=== PATIENT | female | born 2000 | race Caucasian/White ===

== ENCOUNTER → 2024-05-22 14:45 | Outpatient (REF) | payer BC, SELFPAY | LOC: PNTC 14:45 | PROVIDERS: ATTENDING PHYSICIAN Advanced Practice Midwife | DX: Z36.0 Encounter for antenatal screening for chromosomal anomalies (principal); Z36.82 Encounter for antenatal screening for nuchal translucency | CPT/HCPCS: 76801; 76813 ==

== ENCOUNTER 2024-07-02 08:46 | Emergency (ER) | payer OTHER, SELFPAY ==
[2024-07-02 08:49] VITALS: BP 105/74
--- NOTE | 2024-07-02 09:12 | ED.GENMED ---
History of Present Illness
General
Chief Complaint: Problems
Time Seen by Provider: 07/02/24 09:02
History of Present Illness
History of Present Illness:
Patient presents to the emergency department with vaginal bleeding. She is currently 18 weeks . G1, P0. She is otherwise healthy. She notes a small amount of blood clots on the toilet paper this morning. She states this just happened 1
time. There has not been significant bleeding since. She endorses some mild lower abdominal cramping though she is unsure if this is just typical discomfort. Denies any vomiting. Denies any fevers. Denies any urinary symptoms.
Phy Exam
Physical Exam
Physical Exam:
GENERAL APPEARANCE: NAD, well developed/ well nourished
EYES lids/conjunctiva normal
EARS/NOSE/THROAT Mucous membranes moist, uvula midline without oral pharyngeal erythema, exudate or swelling
HEAD/NECK normocephalic atraumatic, neck is supple.
RESPIRATORY respiratory effort normal, speaks in full sentences, no accessory muscle use. Lungs clear to auscultation without rhonchi, wheezes, rales
CARDIAC Regular rate and rhythm, no edema.
ABDOMINAL gravid abdomen. Nontender uterus, no abdominal tenderness
MUSCLES/EXTREMITIES No abnormal range of motion, no swelling.
SKIN Warm, pink and dry. No rashes
NEUROLOGICAL Speech is clear and appropriate. Normal level of consciousness. 5/5 strength in all extremities.
PSYCH Normal mood and affect. Judgement/competence is appropriate
Course
Orders/Labs/Results
Orders:
Orders
07/02/24 09:10
US Limited Urgent
Reason For Exam: vaginal bleeding
07/02/24 09:45
Type+Screen Urgent
Complete Blood Count/With Diff Urgent
Comprehensive Metabolic Panel Urgent
HCG, Beta Quantitative [Beta HCG Quantitative] Urgent
Is this a screen?: No
Urinalysis Reflex To Culture Urgent
Date Specimen was Collected: 07/02/24
Time Specimen was Collected: 09:44
Urine Microscopic Reflex Cult Urgent
Urine Culture Urgent
JES Source: U
Specimen Description:
Date Specimen was Collected: 07/02/24
Time Specimen was Collected:
Abnormal Lab Results
07/02/24
09:45
MCH 31.8 H pg
(27.0-31.0)
Absolute Lymphs (auto) 1.1 L 10^3/uL
(1.2-3.4)
Lymphocytes % 17.4 L %
(20.5-51.1)
BUN 6 L mg/dl
(7-17)
Creatinine 0.5 L mg/dL
(0.6-1.0)
Total Protein 6.2 L g/dl
(6.3-8.2)
Leukocyte Esterase Rfl 2+ A
(Negative)
Urine WBC (Reflex) 16-20 A /HPF
(0-5)
Urine Bacteria (Reflex) Moderate A
(Negative)
Urine Glucose 1+ A
(Negative)
07/02/24 09:45
07/02/24 09:45
Vital Signs
Initial and Last Documented VS:
Initial Vital Signs
Temp Pulse Resp BP Pulse Ox
98.2 F 68 18 105/74 100
07/02/24 08:49 07/02/24 08:49 07/02/24 08:49 07/02/24 08:49 07/02/24 08:49
Last Documented Vital Signs
Temp Pulse Resp BP Pulse Ox
98.2 F 68 18 105/74 100
07/02/24 08:49 07/02/24 08:49 07/02/24 08:49 07/02/24 08:49 07/02/24 08:49
Information
Weeks gestation: Weeks: (18)
Location: Location: (uterus)
*Critical Care Note
Total Time (30-74mins, 75-104mins- exclusive of procedures): Not Applicable
ED Attending Note
ED Attending Note
ED Attending Note:
Patient with an episode of vaginal bleeding during secondary menstrual . She is hemodynamically stable. There is not continued hemorrhaging. Will check blood work and ultrasound of pelvis
Ultrasound showing normal . Patient has had no more bleeding while in the emergency department. She is feeling well and appears well. Will treat for asymptomatic bacteriuria. Patient is Rh+ and will not require RhoGAM. Counseled on
close follow-up with her dot compliance manager as an outpatient. Return precautions given
-
Portions of this chart may have been created with voice recognition software.� Occasional wrong word or��sound alike� substitutions may have occurred due to the inherent limitations of voice recognition software.
Discharge Plan
Departure
Patient Disposition: Home (Routine Discharge)
Date of Disposition: 07/02/24
Time of Disposition: 11:47
Patient with high blood pressure during this ER visit?: No
Discharge Problem:
Vaginal bleeding during , Asymptomatic bacteriuria during
Prescriptions:
New
nitrofurantoin monohyd/m-cryst [Macrobid] 100 mg capsule
100 mg PO BID Qty: 10 0RF
Referrals:
Karla Moss CRNP [Family Provider] -
Activity Restrictions/Additional Instructions:
Please follow-up with your dot compliance manager as soon as possible. We started you on an antibiotic for asymptomatic bacteriuria. Return to the emergency department with new or worsening bleeding, pelvic pain or cramping, or other new or concerning
symptoms
Interventions
Interventions:
*Risk Screen - Suicide Last Done: 07/02/24 08:49
*General Assessment Last Done: 07/02/24 08:49
*Neglect/Abuse Screening Last Done: 07/02/24 08:49
*ED- Fall Risk Assessment Last Done: 07/02/24 10:48
*ED COVID-19 Vaccine History Last Done: 07/02/24 10:48
ED-Female Genitourinary Assessment Last Done: 07/02/24 10:48
Discharge Date and Time
Print Language: GEORGIAN
[2024-07-02 09:44] VITALS: BMI 25.8
[2024-07-02 09:55] LABS: % Basophils 0.5 % (0-2); % Eosinophils 2.2 % (0-6); % Immature Granulocytes 0.5 % (0-0.5); % Lymphocytes 17.4 % (20.5-51.1); % Monocytes 5.5 % (1.7-9.3); % Neutrophils 73.9 % (42.2-75.2); Absolute Eosinophils 0.1 10^3/uL (0-0.7); Absolute Lymphocytes 1.1 10^3/uL (1.2-3.4); Absolute Monocytes 0.4 10^3/uL (0.1-0.6); Absolute Neutrophils 4.8 10^3/uL (1.4-6.5); Hemoglobin 13.6 g/dL (12.0-16.0); Mean Corp Hgb Conc. 34.9 g/dL (33.0-37.0); Mean Corpuscular Hgb 31.8 pg (27.0-31.0); Mean Corpuscular Volume 91.1 fL (81.0-99.0); Mean Platelet Volume 9.6 fL (7.4-10.4); Nucleated Red Blood Cells % 0 %; Platelet Count 258 10^3/uL (130-400); Red Blood Cell Count 4.28 10^6/uL (4.20-5.40); Red Cell Dist. Width 13.1 % (11.5-14.5); White Blood Cell Count 6.4 10^3/uL (4.8-10.8)
[2024-07-02 10:00] LABS: Urine Albumin Negative (Neg - Trace); Urine Bilirubin Negative (Negative); Urine Character Slightly Cloudy (Clear); Urine Color Yellow; Urine Glucose 1+ (Negative); Urine Ketone Negative (Negative); Urine Leukocyte 2+ (Negative); Urine Nitrite Negative (Negative); Urine Occult Blood Negative (Negative); Urine Urobilinogen Negative (Neg - 1+); Urine pH 6.5 (5.0-9.0)
[2024-07-02 10:04] LABS: ALT (SGPT) 27 U/L (0-35); AST (SGOT) 26 U/L (14-36); Albumin 3.8 g/dl (3.5-5.0); Alkaline Phosphatase 42 U/L (38-126); Blood Urea Nitrogen 6 mg/dl (7-17); Calcium 9.9 mg/dl (8.4-10.2); Carbon Dioxide 25 mmol/L (22-30); Chloride 107 mmol/L (98-107); Estimated Creatinine Clearance 123 ml/min; Glucose 75 mg/dl (70-99); Potassium 4.1 mmol/L (3.5-5.1); Sodium 139 mmol/L (135-145); Total Bilirubin 0.4 mg/dl (0.2-1.3); Total Protein 6.2 g/dl (6.3-8.2); eGFR > 60.00
[2024-07-02 10:13] LABS: Urine Squamous Cell >30 /LPF (Few)
[2024-07-02 10:14] LABS: Urine Bacteria Moderate (Negative); Urine White Cell 16-20 /HPF (0-5)
[2024-07-02 10:15] LABS: Urine Red Blood Cell None Seen /HPF (0-2)
[2024-07-02 12:12] VITALS: BP 112/69
== END 2024-07-02 12:14 | disposition home or self-care (01) ==
LOC: EMR 08:46
PROVIDERS: EMERGENCY PHYSICIAN Emergency Medicine; FAMILY PHYSICIAN Nurse Practitioner Family
DX: O20.9 Hemorrhage in early pregnancy, unspecified (principal); Z3A.18 18 weeks gestation of pregnancy; R82.71 Bacteriuria; Z88.1 Allergy status to other antibiotic agents
CPT/HCPCS: 99284; 76815; 80053; 81003; 81015; 84702; 85025; 86850; 86900; 86901; 87086

== ENCOUNTER → 2024-07-18 07:47 | Outpatient (REF) | payer OTHER, SELFPAY | LOC: PNTC 07:47 | PROVIDERS: ATTENDING PHYSICIAN Obstetrics & Gynecology | DX: Z34.82 Encounter for supervision of other normal pregnancy, second trimester (principal) | CPT/HCPCS: 76805; 76817 ==

== ENCOUNTER 2024-11-29 09:45 | Inpatient (IN) | payer OTHER, SELFPAY ==
[2024-11-29 10:10] VITALS: BP 124/92; BMI 28.9
[2024-11-29 10:54] LABS: Hematocrit 37.1 % (37.0-47.0); Hemoglobin 12.6 g/dL (12.0-16.0); Mean Corp Hgb Conc. 34.0 g/dL (33.0-37.0); Mean Corpuscular Volume 86.9 fL (81.0-99.0); Nucleated Red Blood Cells % 0 %; Platelet Count 257 10^3/uL (130-400); Red Cell Dist. Width 13.7 % (11.5-14.5)
[2024-11-29] MEDS: CLEOCIN 50 IV ×2 (11:00→19:01)
[2024-11-29] MEDS: PITOCIN 30 UNITS/NSS 500 ML IV (11:00)
[2024-11-29] MEDS: LR 1000 IV ×3 (11:00→21:51)
[2024-11-29] MEDS: SUBLIMAZE 100 MCG EPIDURAL (16:02)
[2024-11-29] MEDS: FENTANYL/BUPIVACAINE 100 EPIDURAL (16:02)
[2024-11-29] MEDS: TUMS CHEWABLE TABLET 400 MG PO (19:43)
[2024-11-29] MEDS: BRETHINE 250 MCG SC (21:50)
[2024-11-29] MEDS: ZOFRAN 4 MG IV (22:43)
[2024-11-30] MEDS: BICITRA 30 ML PO (02:54)
[2024-11-30] MEDS: TYLENOL 975 MG PO (02:54)
[2024-11-30] MEDS: GENTAMICIN 59.25 MG IV (03:00)
[2024-11-30] MEDS: ZITHROMAX INFUSION 250 IV (03:15)
[2024-11-30] MEDS: CLEOCIN 50 IV (03:30)
[2024-11-30] MEDS: CLEOCIN IV (05:51)
[2024-11-30] MEDS: COLACE 100 MG PO (07:57)
[2024-11-30] MEDS: REGLAN 10 MG IV ×3 (09:44→22:16)
[2024-11-30] MEDS: TORADOL 15 MG IV ×3 (09:44→22:15)
--- NOTE | 2024-11-30 14:41 | W.PN.ANS.POP ---
Anesthesia Post Operative
- Anesthesia Post Op Note
Vital Signs Stable-See Nursing Note: Yes
Airway Patent: Yes
Adequate Pain Control: Yes
Change in Mental Status: Yes
Current Postoperative Nausea & Vomiting: Yes
Anesthesia Complications: No (no headache/back pain/ ambulating without difficulty)
General Anesthetic Recall: No
Unplanned Admission: No
Post Op Hydration Adequate: Yes
[2024-11-30] MEDS: COLACE PO (22:15)
[2024-12-01] MEDS: TORADOL 15 MG IV (04:17)
[2024-12-01 05:16] LABS: Hematocrit 32.1 % (37.0-47.0); Hemoglobin 11.0 g/dL (12.0-16.0); Mean Corp Hgb Conc. 34.3 g/dL (33.0-37.0); Mean Corpuscular Volume 88.4 fL (81.0-99.0); Platelet Count 215 10^3/uL (130-400); Red Cell Dist. Width 13.8 % (11.5-14.5)
[2024-12-01] MEDS: COLACE 100 MG PO ×2 (08:30→20:26)
[2024-12-01] MEDS: TYLENOL 650 MG PO ×4 (10:18→23:49)
[2024-12-01] MEDS: MOTRIN 600 MG PO ×3 (10:18→22:35)
[2024-12-01 15:47] LABS: Syphilis/T. pallidum Ab Reflex Negative (Negative)
[2024-12-01 15:47] LABS: Syphilis/T. pallidum Ab Reflex Negative (Negative)
[2024-12-02] MEDS: MOTRIN 600 MG PO (05:07)
[2024-12-02] MEDS: TYLENOL 650 MG PO (07:59)
[2024-12-02] MEDS: COLACE 100 MG PO (07:59)
--- NOTE | 2024-12-02 09:48 | W.DS.TRANS ---
DC Summary - Visual Stylist
-
Discharge Instructions:
Discharge Diagnosis/Procedures S/P primary LTUS C/S
Diet No restrictions
Activity No strenuous activity
Driving Restrictions No driving for 2 weeks
Instructions:
Stand-Alone Forms: LDRP Delivery
Changes to Home Medications: No
Discharge Medications:
DC Medications w/original date entered in [facility]
acetaminophen 325 mg tablet 650 mg (2 x 325 mg) PO Q4HPRN PRN mild pain #30 tabs 12/01/24
docusate sodium 100 mg capsule 100 mg PO BID #30 caps 12/01/24
ibuprofen 600 mg tablet 600 mg PO Q6HPRN PRN cramps #30 tabs 12/01/24
Home Medication Changes
Pending Results: No
--- NOTE | 2024-12-02 09:48 | W.DCSUMMARY ---
Discharge Summary
Discharge Data
Date of Admission: 11/29/24
Date of Discharge: 12/02/24
-
Pending Results: No
Hospital Course
Patient is a 24yo @39.5 who presented to labor and delivery on 11/29 for elective induction of labor with Dayanna Mann CNM. She was started on Pitocin and Clindamycin for GBS prophylaxis. On admission, she was 2-3/70/-1. She had spontaneous
rupture of membranes. At 2044, she had tachysystole with deep variables and pitocin was halved. She was 5-6cm with caput noted. She had tachysystole again and was given terb at 2152. At 4, she had minimal change and was 6/90/-1 and an IUPC was
placed. At 229 she had a 6 min decelerations and exam was unchanged, meeting criteria for arrest of dilation. She underwent primary low transverse section on 11/30, delivering a viable male infant. The procedure was uncomplicated. The QBL
was 510. On postop day one, she had no complaints. Her hemoglobin was 11.0. On postop day two, she was meeting all postoperative milestones and desired discharge home. She was tolerating a regular diet, voiding spontaneously, had no heavy lochia and
was passing flatus. She was given discharge instructions and return precautions and all questions answered prior to discharge. She was instructed to follow up in the office in 2 days for an incision check.
Discharge Plan
-
Patient Disposition: Home (Routine Discharge)
Discharge Diagnosis/Procedures: S/P primary LTUS C/S
Condition: Good
Diet: No restrictions
Activity: No strenuous activity
Driving Restrictions: No driving for 2 weeks
Stand Alone Forms: LDRP Delivery
Referrals:
Dayanna Mann CNM [Certified Nurse Radio Mechanic, Obstetrics [facility]] - in two weeks
UNKNOWN - PT NOT,INTERVIEWE [Family Provider]
Prescriptions:
New
acetaminophen 325 mg Tablet
650 mg PO Q4HPRN PRN (Reason: mild pain) Qty: 30 0RF
docusate sodium 100 mg Capsule
100 mg PO BID Qty: 30 0RF
ibuprofen 600 mg Tablet
600 mg PO Q6HPRN PRN (Reason: cramps) Qty: 30 0RF
Discharge Orders:
Discharge Patient (As Directed); Ordered 12/02/24
Ordered By: Jessica Jean
Discharge Date and Time
Print Language: NORWEGIAN
== END 2024-12-02 13:30 | disposition home or self-care (01) | DRG 788 ==
LOC: LDRP 09:45
PROVIDERS: ADMITTING PHYSICIAN Obstetrics & Gynecology; ATTENDING PHYSICIAN Advanced Practice Midwife
PROC: 10D00Z1 Extraction of Products of Conception, Low, Open Approach (ICD-10-PCS; 2024-11-30)
DX: O62.0 Primary inadequate contractions (principal); Z3A.39 39 weeks gestation of pregnancy; Z37.0 Single live birth; O99.824 Streptococcus B carrier state complicating childbirth; O76 Abnormality in fetal heart rate and rhythm complicating labor and delivery
CPT/HCPCS: 85025; 85027; 86780; 86850; 86900; 86901